=== PATIENT | male | born 1960 | race Caucasian/White ===

== ENCOUNTER 2017-07-10 09:06 | Day surgery (SDC) | payer OTHER ==
[~2017-07-10] VITALS: Ht 172.7 cm; Wt 79.4 kg
[2017-07-10] MEDS ORDERED: SODIUM CHLORIDE 0.9% 1,000 ML IV SCH (09:50)
[2017-07-10 09:58] LABS: BASOPHILS % 1.1 % (0.0-2.0); EOSINOPHILS % 1.3 % (0.0-5.0); HEMATOCRIT. 47.3 % (42.0-52.0); HEMOGLOBIN. 16.2 g/dL (14.0-18.0); LYMPHOCYTES % 25.6 % (20.0-50.0); MEAN CORPUSCULAR HEMOGLOBIN 30.1 pg (28.0-32.0); MEAN CORPUSCULAR VOLUME 88.1 fL (80.0-94.0); MONOCYTES % 10.7 % (2.0-8.0); NEUTROPHILS % 61.3 % (40.0-76.0); PLATELET 255 x1000/uL (130-400); RED BLOOD CELL COUNT 5.37 mill/uL (4.7-6.1); RED CELL DISTRIBUTION WIDTH 13.4 % (11.6-14.6)
[2017-07-10 10:01] LABS: CHLORIDE 103 mEq/L (98-107)
[2017-07-10] MEDS ORDERED: FENTANYL CITRATE/PF 50MCG/ML 2ML VIAL ONE (11:17)
[2017-07-10] MEDS ORDERED: MIDAZOLAM HCL 2 MG/2 ML VIAL ONE ×3 (11:17→11:44)
[2017-07-10] MEDS ORDERED: DIPHENHYDRAMINE 50MG/ML VIAL ONE (11:18)
[2017-07-10] MEDS ORDERED: LIDOCAINE HCL/PF 1% 10 MG/ML 5ML VIAL ONE (11:18)
[2017-07-10] MEDS ORDERED: PROPOFOL 200MG/20ML VIAL IV ONE (11:18)
[2017-07-10] MEDS ORDERED: SIMETHICONE 40 MG/0.6 ML 30ML ONE (11:19)
[2017-07-10] MEDS ORDERED: ALPR2TAB2 PO (12:10)
[2017-07-10] MEDS ORDERED: DICY10CA59 PO (12:10)
[2017-07-10] MEDS ORDERED: AMIT25TA9 PO (12:10)
[2017-07-10] MEDS ORDERED: OMEP20TA15 PO (12:10)
[2017-07-10] MEDS ORDERED: ZOLP10TA2 PO (12:10)
[2017-07-10] MEDS ORDERED: MORPHINE SULFATE 2 MG/ML CPJ (NOT FOR IM USE) IV PRN (12:30)
[2017-07-10] MEDS ORDERED: LORAZEPAM 2MG/ML CPJ IV SCH (13:00)
[2017-07-10] MEDS: MORPHINE SULFATE 4 MG/ML CPJ (NOT FOR IM USE) IV PRN ×2 (13:03→14:10)
[2017-07-10 14:10] VITALS: BP 135/78
== END 2017-07-10 15:30 | disposition home or self-care (01) ==
LOC: OR 09:06
PROVIDERS: ATTEND Internal Medicine Gastroenterology
DX: Z09 Encounter for follow-up examination after completed treatment for conditions other than malignant neoplasm (principal); K57.30 Diverticulosis of large intestine without perforation or abscess without bleeding; Z98.890 Other specified postprocedural states; Z86.010 Personal history of colon polyps
CPT/HCPCS: 36415; 45378; 80048; 85025; J1200; J2060; J2250; J2270; J3010; J3490; J7120; J2704